=== PATIENT | male | born 1960 | race Caucasian/White ===

== ENCOUNTER 2017-03-07 12:48 | Observation (INO) | payer OTHER, MEDICAID ==
[~2017-03-07] VITALS: Ht 165.1 cm; Wt 90.0 kg
[2017-03-07 13:07] VITALS: BP_SYST 115; BP_SYST 94; BP_SYST 95; BP_DIAS 56; BP_DIAS 58; BP_DIAS 61; PULSE 95; PULSE 96; RESP 18; O2SAT 98
[2017-03-07 13:14] LABS: BLOOD GAS VENOUS HCO3 25 mmol/L (22-26); BLOOD GAS VENOUS O2 CONTENT 19.1 Vol % (9.0-17.0); BLOOD GAS VENOUS O2 HGB SAT 89 % (70-76); BLOOD GAS VENOUS PCO2 49 mmHg (44-48); BLOOD GAS VENOUS PO2 64 mmHg (35-40); BLOOD GAS VENOUS pH 7.33 (7.360-7.400); CRITICAL VALUE NO; DRAW SITE VENOUS; TEMP CORR TO 98.6
[2017-03-07] MEDS ORDERED: NALOXONE HCL 0.4 MG/ML AMP IV PUSH ONE (13:15)
[2017-03-07] MEDS ORDERED: SODIUM CHLOR 0.9% 1000 ML INJ 1,000 ML IV ONE ×2 (13:15→15:00)
[2017-03-07 13:30] LABS: AUTOMATED NEUTROPHIL # 10.1 TH/MM3 (1.8-7.7); BASOPHIL # 0.2 TH/MM3 (0-0.2); BASOPHIL % 1.2 % (0.0-2.0); EOSINOPHIL # 0.3 TH/MM3 (0-0.4); EOSINOPHIL % 2.4 % (0.0-4.0); HEMATOCRIT 45.5 % (39.0-51.0); HEMO FLAGS DIFF FINAL; LYMPH % 17.2 % (9.0-44.0); LYMPHOCYTE # 2.4 TH/MM3 (1.0-4.8); MEAN CELL VOLUME 84.8 FL (80.0-100.0); MEAN CORPUSCULAR HEMOGLOBIN 28.3 PG (27.0-34.0); MEAN CORPUSCULAR HGB CONC 33.4 % (32.0-36.0); MONO % 6.5 % (0.0-8.0); NEUT % 72.7 % (16.0-70.0); PLATELET COUNT 212 TH/MM3 (150-450); RED BLOOD COUNT 5.37 MIL/MM3 (4.50-5.90); RED CELL DISTRIBUTION WIDTH 14.9 % (11.6-17.2); WHITE BLOOD COUNT 13.9 TH/MM3 (4.0-11.0)
[2017-03-07 13:35] LABS: APTT (PATIENT) 23.8 SEC (24.3-30.1); PROTHROMBIN TIME - PATIENT 10.5 SEC (9.8-11.6)
[2017-03-07 13:47] LABS: ALT (GPT) 50 U/L (12-78)
[2017-03-07 13:48] LABS: ANION GAP 11 MEQ/L (5-15); AST (GOT) 33 U/L (15-37); BICARBONATE 23.2 MEQ/L (21.0-32.0); BLOOD UREA NITROGEN 21 MG/DL (7-18); CHLORIDE 98 MEQ/L (98-107); GLOMERULAR FILTRATION RATE 35 ML/MIN (>89); MAGNESIUM 2.1 MG/DL (1.5-2.5); POTASSIUM 4.1 MEQ/L (3.5-5.1); SODIUM (NA) 132 MEQ/L (136-145)
--- NOTE | 2017-03-07 13:48 | PD ---
HPI Chief Complaint: Cardiac Complaint Time Seen by Provider: 13:03 Travel History International Travel<30 days: No Contact w/Intl Traveler<30days: No Traveled to known affect area: No History of Present Illness HPI 56-year-old male presents with left-sided jaw pain and feeling like he's gonna pass out. Patient is very drowsy on initial examination and history is difficult to obtain. He was found in a [employer] parking lot and brought here. He was shopping there with his mother who is demented. He denies other complaints but history is limited [facility] Past Medical History Hypertension: Yes Myocardial Infarction: Yes Pneumonia: Yes Past Surgical History Thoracic Surgery: Yes (Thoracotomy in 1981) Social History Alcohol Use: Yes (on occasion) Tobacco Use: Yes (0.5 ppd) Substance Use: No Allergies-Medications (Allergen,Severity, Reaction): Coded Allergies: No Known Allergies (Unverified , 03/07/17) Review of Systems ROS Limitations: Poor Historian Except as stated in HPI: all other systems reviewed are Neg Physical Exam Exam Limitations: Poor Historian Narrative GENERAL: Well-nourished, well-developed patient. SKIN: Warm and dry. HEAD: Normocephalic and atraumatic. EYES: No injection or drainage. Pupils pinpoint ENT: No nasal drainage noted. NECK: Supple, trachea midline. CARDIOVASCULAR: Regular rate and rhythm RESPIRATORY: Breath sounds equal bilaterally at apices. No accessory muscle use. GASTROINTESTINAL: Abdomen soft, non-tender, nondistended. EXTREMITIES: No edema. NEUROLOGICAL: Drowsy but awakens to voice. Moves all extremities. Slurred speech. Data Data Last Documented VS Vital Signs Date Time Temp Pulse Resp B/P Pulse Ox O2 Delivery O2 Flow Rate FiO2 03/07/17 13:14 89 20 100 Nasal Cannula 3 03/07/17 13:07 115/61 Orders Electrocardiogram (03/07/17 13:03) B-Type Natriuretic Peptide (03/07/17 13:03) Ckmb (Isoenzyme) Profile (03/07/17 13:03) Complete Blood Count With Diff (03/07/17 13:03) Comprehensive Metabolic Panel (03/07/17 13:03) Magnesium (Mg) (03/07/17 13:03) Prothrombin Time / Inr (Pt) (03/07/17 13:03) Act Partial Throm Time (Ptt) (03/07/17 13:03) Troponin I (03/07/17 13:03) Chest, Single Ap (03/07/17 13:03) Ecg Monitoring (03/07/17 13:03) Bilateral Bp Monitoring (03/07/17 13:03) Iv Access Insert/Monitor (03/07/17 13:03) Oximetry (03/07/17 13:03) Ct Brain W/O Iv Contrast(Rout) (03/07/17 ) Ammonia (03/07/17 13:03) Drug Screen, Random Urine (03/07/17 13:03) Alcohol (Ethanol) (03/07/17 13:03) Lactic Acid Sepsis Protocol (03/07/17 13:05) Phosphorus (Po4) (03/07/17 13:05) Blood Culture (03/07/17 13:05) Sodium Chlor 0.9% 1000 Ml Inj (Ns 1000 M (03/07/17 13:15) Blood Gas Venous (Vbg) (03/07/17 13:05) Naloxone Inj (Narcan Inj) (03/07/17 13:15) Echo 2d Comp With Doppler (03/07/17 ) Sodium Chlor 0.9% 1000 Ml Inj (Ns 1000 M (03/07/17 15:00) Troponin I (03/07/17 19:00) Troponin I (03/08/17 01:00) Sodium Chlor 0.9% 1000 Ml Inj (Ns 1000 M (03/07/17 16:00) Basic Metabolic Panel (Bmp) (03/08/17 06:00) Complete Blood Count With Diff (03/08/17 06:00) Diet Heart Healthy (03/07/17 Dinner) Vital Signs (Adult) [id number] (03/07/17 15:16) Admit Order (Ed Use Only) (03/07/17 15:19) Labs Laboratory Tests Test 03/07/17 03/07/17 03/07/17 13:05 13:08 14:58 White Blood Count 13.9 TH/MM3 Red Blood Count 5.37 MIL/MM3 Hemoglobin 15.2 GM/DL Hematocrit 45.5 % Mean Corpuscular Volume 84.8 FL Mean Corpuscular Hemoglobin 28.3 PG Mean Corpuscular Hemoglobin 33.4 % Concent Red Cell Distribution Width 14.9 % Platelet Count 212 TH/MM3 Mean Platelet Volume 8.7 FL Neutrophils (%) (Auto) 72.7 % Lymphocytes (%) (Auto) 17.2 % Monocytes (%) (Auto) 6.5 % Eosinophils (%) (Auto) 2.4 % Basophils (%) (Auto) 1.2 % Neutrophils # (Auto) 10.1 TH/MM3 Lymphocytes # (Auto) 2.4 TH/MM3 Monocytes # (Auto) 0.9 TH/MM3 Eosinophils # (Auto) 0.3 TH/MM3 Basophils # (Auto) 0.2 TH/MM3 CBC Comment DIFF FINAL Differential Comment Prothrombin Time 10.5 SEC Prothromb Time International 1.0 RATIO Ratio Activated Partial 23.8 SEC Thromboplast Time Sodium Level 132 MEQ/L Potassium Level 4.1 MEQ/L Chloride Level 98 MEQ/L Carbon Dioxide Level 23.2 MEQ/L Anion Gap 11 MEQ/L Blood Urea Nitrogen 21 MG/DL Creatinine 2.00 MG/DL Estimat Glomerular Filtration 35 ML/MIN Rate Random Glucose 112 MG/DL Lactic Acid Level 1.0 mmol/L Calcium Level 9.3 MG/DL Phosphorus Level 5.3 MG/DL Magnesium Level 2.1 MG/DL Total Bilirubin 0.7 MG/DL Aspartate Amino Transf 33 U/L (AST/SGOT) Alanine Aminotransferase 50 U/L (ALT/SGPT) Alkaline Phosphatase 74 U/L Ammonia 39 MCMOL/L Total Creatine Kinase 67 U/L Troponin I LESS THAN 0.02 NG/ML B-Type Natriuretic Peptide 10 PG/ML Total Protein 8.0 GM/DL Albumin 4.1 GM/DL Ethyl Alcohol Level LESS THAN 3 MG/DL Blood Gas Puncture Site VENOUS Blood Gas Patient Temperature 98.6 Venous Blood pH 7.33 Venous Blood Partial Pressure 49 mmHg CO2 Venous Blood Partial Pressure 64 mmHg O2 Venous Blood HCO3 25 mmol/L Venous Blood Oxygen Saturation 89 % Venous Blood Oxygen Content 19.1 Vol % Venous Blood Base Excess 0.0 mmol/L Urine Color YELLOW Urine Turbidity HAZY Urine pH 6.0 Urine Specific [place] 1.014 Urine Protein 100 mg/dL Urine Glucose (UA) NEG mg/dL Urine Ketones NEG mg/dL Urine Occult Blood NEG Urine Nitrite NEG Urine Bilirubin NEG Urine Urobilinogen LESS THAN 2.0 MG/DL Urine Leukocyte Esterase NEG Urine WBC 16 /hpf Urine Hyaline Casts 5 /lpf Urine Granular Casts 13 /lpf Urine Mucus FEW /lpf Microscopic Urinalysis Comment CULTURE INDICATED Urine Opiates Screen NEG Urine Barbiturates Screen NEG Urine Amphetamines Screen NEG Urine Benzodiazepines Screen POS Urine Cocaine Screen NEG Urine Cannabinoids Screen NEG MDM Medical Decision Making Medical Screen Exam Complete: Yes Emergency Medical Condition: Yes Medical Record Reviewed: Yes (no records here) Interpretation(s) EKG is sinus rhythm at 90 with bundle branch block and multifocal PVCs without STEMI criteria confirmed by material specialist ABG shows normal pH and hemoglobin CBC & BMP Diagram 03/07/17 13:05 Last 24 hours Impressions Chest X-Ray 03/07/17 1303 Signed Impressions: Service Date/Time: Tuesday, March 07, 2017 13:17 - CONCLUSION: Underated, elevation left hemidiaphragm otherwise negative. Hilton Castro MD FACR Head CT 03/07/17 0000 Signed Impressions: Service Date/Time: Tuesday, March 07, 2017 14:06 - CONCLUSION: 1. No acute intracranial abnormality. Harsha Keller MD Differential Diagnosis AR, sepsis, congestion, intercranial.... Narrative Course Will check blood work, imaging and dose with Narcan and reevaluate After Narcan patient's pupils are now 3 mm and he is able to talk and provide more history and states he feels better. will admit to the hospital for further care, patient updated but states he cant stay now and has to take care of his mother, nurse at bedside, AMA: The risks of leaving against medical advice without further evaluation treatment were discussed with the patient. These risks include cardiac dysfunction, cardiac dysrhythmia, possible heart attack, possible stroke or . The patient indicated understanding of these risks and appeared to have the capacity to make this decision. Physician Communication Physician Communication Dr. Keenan agrees no STEMI, states can check stat echo dr keenan called back and states chronic inferior wall changes on echo, will follow dr pastor agrees to admit dr keenan and vashti advised left ama Diagnosis Primary Impression: Acute renal failure Qualified Code: N17.9 - Acute renal failure, unspecified acute renal failure type Additional Impressions: Jaw pain Frequent PVCs Altered mental status Qualified Code: R41.82 - Altered mental status, unspecified altered mental status type Additional Instructions: return for completion of testing when you can Disposition: 07 AGAINST MEDICAL ADVICE Condition: Stable Olive Quinonez MD Mar 07, 2017 13:48
[2017-03-07 13:51] LABS: ALKALINE PHOSPHATASE 74 U/L (45-117); TOTAL BILIRUBIN ADULT 0.7 MG/DL (0.2-1.0)
[2017-03-07 13:53] LABS: CREATINE KINASE 67 U/L (39-308)
--- NOTE | 2017-03-07 13:53 | RADRPT ---
EXAM DATE/TIME: 03/07/2017 13:17 [facility] COMPARISON: No previous studies available for comparison. INDICATIONS : Chest pain, confusion MEDICAL HISTORY : None. SURGICAL HISTORY : None. ENCOUNTER: Initial ACUITY: 1 day PAIN SCORE: Non-responsive. LOCATION: Bilateral chest FINDINGS: There is moderate elevation of the left hemidiaphragm. The heart is minimally enlarged. The pulmona ry vascularity is normal. There is no pneumothorax. The portion of the bony skeleton visualized is u nremarkable. CONCLUSION: Underated, elevation left hemidiaphragm otherwise negative. Hilton Castro MD FACR on March 07, 2017 at 13:50 Board Certified Radiologist. This report was verified electronically.
--- NOTE | 2017-03-07 14:22 | EKG ---
Date Performed: 03/07/2017 Time Performed: 13:04:21 PTAGE: 56 years EKG: Sinus rhythm WITH FREQUENT VENTRICULAR PREMATURE COMPLEXES INDETERMINATE AXIS RIGHT BUNDLE BRANCH BLOCK LEFT ANTE RIOR FASCICULAR BLOCK ANTERIOR MYOCARDIAL INFARCTION INFERIOR MYOCARDIAL INFARCTION ABNORMAL ECG NO PREVIOUS TRACING DOCTOR: Stan Norton Interpretating Date/Time 03/07/2017 14:20:35
--- NOTE | 2017-03-07 14:25 | ECHRPT ---
Indication: CONCLUSIONS Normal left ventricular size. The left ventricular systolic function is moderately reduced with an estimated ejection fraction 40% Inferior wall is scarred and akinetic Trace mitral valve regurgitation. There is trace tricuspid valve regurgitation. The pulmonary valve is not well visualized. BP: / HR: Rhythm: MEASUREMENTS (Male / Female) Normal Values Technical Quality:Fair 2D ECHO LV Diastolic Diameter PLAX 4.8 cm 4.2 - 5.9 / 3.9 - 5.3 cm LV Systolic Diameter PLAX 4.0 cm IVS Diastolic Thickness 1.1 cm 0.6 - 1.0 / 0.6 - 0.9 cm LVPW Diastolic Thickness 1.0 cm 0.6 - 1.0 / 0.6 - 0.9 cm LV Relative Wall Thickness 0.4 RV Internal Dim ED PLAX 2.4 cm M-MODE Aortic Root Diameter MM 3.4 cm LA Systolic Diameter MM 4.7 cm LA Ao Ratio MM 1.4 AV Cusp Separation MM 2.4 cm DOPPLER Mitral E Point Velocity 68.1 cm/s Mitral A Point Velocity 76.0 cm/s Mitral E to A Ratio 0.9 LV E' Lateral Velocity 7.0 cm/s Mitral E to LV E' Lateral Ratio 9.7 LV E' Septal Velocity 7.5 cm/s Mitral E to LV E' Septal Ratio 9.1 FINDINGS LEFT VENTRICLE Normal left ventricular size. The left ventricular systolic function is moderately reduced with an estimated ejection fraction 40% Inferior wall is scarred and akinetic RIGHT VENTRICLE Normal right ventricular size and systolic function. LEFT ATRIUM The left atrial size is normal. RIGHT ATRIUM The right atrial size is normal. ATRIAL SEPTUM Normal atrial septal thickness without atrial level shunting by limited color doppler interrogation. AORTA The aortic root and proximal ascending aorta are normal in size on limited imaging. MITRAL VALVE Structurally normal mitral valve. Trace mitral valve regurgitation. AORTIC VALVE Trileaflet aortic valve. No aortic valve stenosis or regurgitation. TRICUSPID VALVE Structurally normal tricuspid valve. There is trace tricuspid valve regurgitation. PULMONARY VALVE The pulmonary valve is not well visualized. VESSELS The inferior vena cava is normal in size. PERICARDIUM No pericardial effusion. Robin Keenan MD (Electronically Signed) Final Date:07 March 2017 14:24
--- NOTE | 2017-03-07 14:29 | RADRPT ---
EXAM DATE/TIME: 03/07/2017 14:06 [facility] COMPARISON: No previous studies available for comparison. INDICATIONS : Confusion, dizziness along with jaw pain. RADIATION DOSE: 37.32 CTDIvol (mGy) MEDICAL HISTORY : None SURGICAL HISTORY : None. ENCOUNTER: Initial ACUITY: 1 day PAIN SCALE: 3/10 LOCATION: cranial TECHNIQUE: Multiple contiguous axial images were obtained of the head. Using automated exposure control and adj ustment of the mA and/or kV according to patient size, radiation dose was kept as low as reasonably a chievable to obtain optimal diagnostic quality images. DICOM format image data is available electro nically for review and comparison. FINDINGS: CEREBRUM: The ventricles are normal for age. No evidence of midline shift, mass lesion, hemorrhage or acute in farction. No extra-axial fluid collections are seen. POSTERIOR FOSSA: The cerebellum and brainstem are intact. The 4th ventricle is midline. The cerebellopontine angle i s unremarkable. EXTRACRANIAL: The visualized portion of the orbits is intact. SKULL: The calvaria is intact. No evidence of skull fracture. CONCLUSION: 1. No acute intracranial abnormality. Harsha Keller MD on March 07, 2017 at 14:19 Board Certified Radiologist. This report was verified electronically.
[2017-03-07 15:44] LABS: AMPHETAMINE, URINE NEG (NEG); BARBITURATES, URINE NEG (NEG); COCAINE, URINE NEG (NEG)
[2017-03-07] MEDS ORDERED: SODIUM CHLOR 0.9% 1000 ML INJ 1,000 ML IV SCH (16:00)
--- NOTE | 2017-03-07 16:18 | HHI.PR ---
Addendum To [facility] Progress Not Reason for addendum: Additonal documentation (was notified by the ER physician that the patient wanted to sign out against medical advice.) Angel Dougherty MD Mar 07, 2017 16:18
[2017-03-07 16:27] LABS: BLOOD, URINE NEG (NEG); COMMENT (UR) CULTURE INDICATED; CULTURE IF INDICATED CULTURE INDICATED; GLUCOSE,URINE NEG (NEG); GRANULAR CAST, URINE 13 /lpf; HYALINE CAST, URINE 5 /lpf (RARE); KETONE, URINE NEG (NEG); MUCUS URINE FEW /lpf (OCC); NITRITE,URINE NEG (NEG); URINE COLOR YELLOW (YELLW/STRAW)
== END 2017-03-07 16:35 | disposition left against medical advice (07) ==
LOC: NEPE 12:48 → NEDA 15:20
PROVIDERS: ADMIT Internal Medicine; ATTEND Internal Medicine
DX: N17.9 Acute kidney failure, unspecified (principal); R68.84 Jaw pain; I49.3 Ventricular premature depolarization; R41.82 Altered mental status, unspecified; R40.0 Somnolence; R47.81 Slurred speech; I45.10 Unspecified right bundle-branch block; R91.8 Other nonspecific abnormal finding of lung field; R07.9 Chest pain, unspecified; R41.0 Disorientation, unspecified; I44.4 Left anterior fascicular block; R94.31 Abnormal electrocardiogram [ECG] [EKG]; R42 Dizziness and giddiness; I10 Essential (primary) hypertension; I25.2 Old myocardial infarction; F17.200 Nicotine dependence, unspecified, uncomplicated
CPT/HCPCS: 70450; 71010; 80053; 80307; 81001; 82140; 82550; 82805; 83605; 83735; 83880; 84100; 84484; 85025; 85610; 85730; 87040; 87086; 93005; 93306; 96374; 99285; G0378; J2310; J7030

== ENCOUNTER 2017-05-17 13:29 | Observation (INO) | payer OTHER, MEDICAID ==
[2017-05-17] VITALS (12 sets, daily range): BP systolic 78–107; BP diastolic 46–58; PULSE 50–90; RESP 18–20; TEMP 98.6; O2SAT 97–100
[~2017-05-17] VITALS: Ht 170.2 cm; Wt 94.0 kg
[2017-05-17] MEDS ORDERED: SPIR25 PO ×2 (13:41→13:46)
[2017-05-17] MEDS ORDERED: TICA1TAB PO (13:41)
[2017-05-17] MEDS ORDERED: LISI-515 PO (13:41)
[2017-05-17] MEDS ORDERED: ASPI81CH37 CHEW (13:41)
[2017-05-17] MEDS ORDERED: ALPR.25 PO (13:41)
[2017-05-17] MEDS ORDERED: XANA1TAB2 PO (13:46)
[2017-05-17] MEDS ORDERED: BRIL90TA PO (13:46)
[2017-05-17] MEDS ORDERED: LISI10TA3 PO (13:46)
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
[2017-05-17] MEDS ORDERED: SODIUM CHLOR 0.9% 1000 ML INJ 1,000 ML IV ONE ×3 (14:00→22:45)
[2017-05-17 14:01] LABS: AUTOMATED NEUTROPHIL # 10.1 TH/MM3 (1.8-7.7); BASOPHIL # 0.2 TH/MM3 (0-0.2); BASOPHIL % 1.5 % (0.0-2.0); EOSINOPHIL # 0.1 TH/MM3 (0-0.4); EOSINOPHIL % 0.7 % (0.0-4.0); HEMATOCRIT 35.9 % (39.0-51.0); HEMO FLAGS DIFF FINAL; LYMPH % 8.9 % (9.0-44.0); LYMPHOCYTE # 1.1 TH/MM3 (1.0-4.8); MEAN CORPUSCULAR HEMOGLOBIN 28.6 PG (27.0-34.0); MEAN CORPUSCULAR HGB CONC 33.7 % (32.0-36.0); MONO % 9.3 % (0.0-8.0); NEUT % 79.6 % (16.0-70.0); PLATELET COUNT 121 TH/MM3 (150-450); RED BLOOD COUNT 4.22 MIL/MM3 (4.50-5.90); RED CELL DISTRIBUTION WIDTH 12.9 % (11.6-17.2); WHITE BLOOD COUNT 12.7 TH/MM3 (4.0-11.0)
[2017-05-17 14:12] LABS: POTASSIUM 4.2 MEQ/L (3.5-5.1)
[2017-05-17 14:15] LABS: BICARBONATE 23.7 MEQ/L (21.0-32.0)
[2017-05-17 14:17] LABS: APTT (PATIENT) 28.2 SEC (24.3-30.1); PROTHROMBIN TIME - PATIENT 10.9 SEC (9.8-11.6)
--- NOTE | 2017-05-17 14:53 | RADRPT ---
EXAM DATE/TIME: 05/17/2017 14:12 [facility] COMPARISON: No previous studies available for comparison. INDICATIONS : Sudden onset of severe right side low back pain yesterday MEDICAL HISTORY : None. SURGICAL HISTORY : None. ENCOUNTER: Initial ACUITY: 2 days PAIN SCORE: 10/10 LOCATION: Right low back FINDINGS: 3 views of the lumbar spine. Grade 1 anterolisthesis L4 on L5. Moderate-sized endplate osteophytes at L4-5. Moderate severity bony facet hypertrophy at L5-S1. No evidence of fracture. CONCLUSION: Moderate severity bony degenerative findings of the lower lumbar spine. Rom Wharton MD on May 17, 2017 at 14:50 Board Certified Radiologist. This report was verified electronically.
[2017-05-17 16:14] LABS: BLOOD, URINE NEG (NEG); GLUCOSE,URINE NEG (NEG); KETONE, URINE NEG (NEG); NITRITE,URINE NEG (NEG); PH, URINE 5.5 (5.0-8.5)
--- NOTE | 2017-05-17 16:14 | RADRPT ---
EXAM DATE/TIME: 05/17/2017 15:41 [facility] COMPARISON: No previous studies available for comparison. INDICATIONS : Low back pain. MEDICAL HISTORY : Hypertension. SURGICAL HISTORY : Coronary artery stent. Thoracotomy ENCOUNTER: Initial ACUITY: 1 day PAIN SCORE: 5/10 LOCATION: Paraspinal TECHNIQUE: Multiplanar multisequence MRI of the lumbar spine was performed without contrast. FINDINGS: The most caudal appearing lumbar vertebra is numbered as L5. VERTEBRAE: Grade 1 anterolisthesis L4 on L5. Bilateral pars interarticularis defects of L4 noted. CONUS: Normal level and configuration. T12-L1: The thecal sac has a normal diameter. No evidence of disc bulge or protrusion. The neural foramina are patent bilaterally. L1-L2: The thecal sac has a normal diameter. No evidence of disc bulge or protrusion. The neural foramina are patent bilaterally. L2-L3: The thecal sac has a normal diameter. No evidence of disc bulge or protrusion. The neural foramina are patent bilaterally. L3-L4: The thecal sac has a normal diameter. No evidence of disc bulge or protrusion. The neural foramina are patent bilaterally. L4-L5: Bilateral pars interarticularis defects of L4. Grade 1 anterolisthesis. Mild bilateral neural foramin al narrowing. Central canal diameter within normal limits. L5-S1: The thecal sac has a normal diameter. No evidence of disc bulge or protrusion. The neural foramina are patent bilaterally. CONCLUSION: Bilateral L4 pars interarticularis defects with grade 1 anterolisthesis of L4 on L5. This finding is age-indeterminate. Mild bilateral neural foraminal narrowing at L4-5. Central canal diameter within n ormal limits all levels. Rom Wharton MD on May 17, 2017 at 16:10 Board Certified Radiologist. This report was verified electronically.
[2017-05-17 16:35] LABS: COMMENT (UR) CULT NOT INDICATED; CULTURE IF INDICATED CULT NOT INDICATED; RBC, URINE 0-3 /hpf (0-3); SQUAMOUS EPITHELIAL CELL URINE 0-5 /hpf (0-5); URINE COLOR YELLOW (YELLW/STRAW); WBC, URINE 0-2 /hpf (0-5)
[2017-05-17] MEDS ORDERED: HYDROmorphone HCL PF 1 MG/ML VIAL IVS ONE (16:45)
[2017-05-17] MEDS ORDERED: ONDANSETRON HCL 4 MG/2 ML VIAL IVP ONE (16:45)
[2017-05-17] MEDS ORDERED: NAPROXEN 500 MG TAB PO ONE (17:00)
[2017-05-17] MEDS ORDERED: ONDANSETRON HCL 4 MG/2 ML VIAL IVP PRN (17:00)
[2017-05-17] MEDS ORDERED: oxyCODONE/ACETAMINOPHEN 5 MG/325 MG TAB PO PRN (17:00)
[2017-05-17] MEDS ORDERED: LACTULOSE SYRUP 20 GM/30 ML CUP PO PRN (17:00)
[2017-05-17] MEDS ORDERED: SODIUM CHLORIDE 0.9% FLUSH 10 ML FLUSH IV FLUSH PRN (17:00)
[2017-05-17] MEDS ORDERED: CYCLOBENZAPRINE HCL 10 MG TAB PO ONE (17:00)
[2017-05-17] MEDS ORDERED: SENNOSIDES 8.6 MG TAB PO PRN (17:00)
[2017-05-17] MEDS ORDERED: NALOXONE HCL 0.4 MG/ML AMP IV PRN (17:00)
--- NOTE | 2017-05-17 17:07 | HHI.HP ---
[facility] Hilton Guerrero DO Admission Diagnosis intract back pain Diagnoses: Travel History International Travel<30 Days: No Contact w/Intl Traveler <30 Da: No Traveled to Known Affected Are: No History of Present Illness Mr. Mcgowan is a 57-year-old male. He reports that he saw a movie last night started having some back pain. Once he returned home he sat in a chair and after sitting and that chair he had difficulty standing. He was unable to stand to return to bedside he spent the night in the chair and in the morning he could not even attempt to get out of the chair due to pain. This is why he is in the ER. Thus far he has not been able to get out of her, and position due to pain in his back. He cannot recall any previous back strain like this. He also does not recall specific triggering event. Most of his medical history is related to coronary artery disease with history of 6 heart attacks and CHF. CHF is not exacerbated. He reports no fevers, no cough, no diarrhea, no vomiting. The pain is specifically musculoskeletal related induced by movements and attempts at movement. MRI shows no acute pathology. Review of Systems Constitutional: DENIES: Fatigue, Fever, Chills, Dizziness, Change in appetite Endocrine: DENIES: Heat/cold intolerance Eyes: DENIES: Blurred vision, Diplopia, Eye pain Ears, nose, mouth, throat: DENIES: Tinnitus, Hearing loss, Vertigo Respiratory: DENIES: Apneas, Cough, Wheezing, Sputum production Cardiovascular: DENIES: Chest pain, Palpitations, Syncope Gastrointestinal: DENIES: Abdominal pain, Black stools, Bloody stools Musculoskeletal: COMPLAINS OF: Muscle aches, Stiffness, Back pain, DENIES: Joint pain Integumentary: DENIES: Abnormal pigmentation Hematologic/lymphatic: DENIES: Bruising Immunologic/allergic: DENIES: Eczema Neurologic: DENIES: Abnormal gait, Headache Psychiatric: DENIES: Anxiety, Confusion, Depression Past Family Social History Past Medical History Coronary artery disease Myocardial infarction 6 CHF Trauma from football Pneumonia/empyema history Degenerative disc disease of spine Past Surgical History Tonsillectomy Right hip surgery Multiple right shoulder surgeries Coronary stents 6 Reported Medications Reported Meds & Active Scripts Active Reported Xanax (Alprazolam) 1 Mg Tab 1 Mg PO Q8H PRN Aldactone (Spironolactone) 25 Mg Tab 75 Mg PO DAILY Lisinopril 10 Mg Tab 10 Mg PO DAILY Brilinta (Ticagrelor) 90 Mg Tab 90 Mg PO BID Aspirin Low Dose (Aspirin) 81 Mg Chew 81 Mg CHEW DAILY Allergies: Coded Allergies: No Known Allergies (Unverified , 05/17/17) Active Ordered Medications Administered Medications Medications (Trade) Dose Ordered Sig/Henrry Route PRN Reason Start Time Stop Time Status Last Admin Dose Admin Sodium Chloride 1,000 ml @ 2,000 mls/hr Q30M ONCE IV 05/17/17 16:45 05/17/17 17:14 05/17/17 16:55 Family History Alzheimer's dementia in his mother Myocardial infarction in his father Social History Distant history of smoking at the age of 31. He quit at age 31 also. No illicit drug abuse No alcohol abuse Physical Exam Vital Signs Vital Signs Date Time Temp Pulse Resp B/P (MAP) Pulse Ox O2 Delivery O2 Flow Rate FiO2 05/17/17 16:56 74 18 107/55 (72) 99 Room Air 05/17/17 16:01 88 18 96/50 (65) 97 Room Air 05/17/17 14:27 90 18 90/46 (61) 98 Room Air 05/17/17 13:31 98.6 86 18 103/57 (72) 97 Physical Exam GENERAL: This is a well-nourished, well-developed patient, in no apparent distress. SKIN: No rashes, ecchymoses or lesions. Cool and dry. HEAD: Atraumatic. Normocephalic. No temporal or scalp tenderness. EYES: Pupils equal round and reactive. Extraocular motions intact. No scleral icterus. No injection or drainage. ENT: Nose without bleeding, purulent drainage or septal hematoma. Throat without erythema, tonsillar hypertrophy or exudate. Uvula midline. Airway patent. NECK: Trachea midline. No JVD or lymphadenopathy. Supple, nontender, no meningeal signs. CARDIOVASCULAR: Regular rate and rhythm without murmurs, gallops, or rubs. RESPIRATORY: Clear to auscultation. Breath sounds equal bilaterally. No wheezes , rales, or rhonchi. GASTROINTESTINAL: Abdomen soft, non-tender, nondistended. No hepato-splenomegaly , or palpable masses. No guarding. MUSCULOSKELETAL: Extremities without clubbing, cyanosis, or edema. No joint tenderness, effusion, or edema noted. No calf tenderness. Negative Homans sign bilaterally. NEUROLOGICAL: Awake and alert. Cranial nerves II through XII intact. Motor and sensory grossly within normal limits. Five out of 5 muscle strength in all muscle groups. Normal speech. Laboratory Laboratory Tests Test 05/17/17 13:45 05/17/17 16:00 White Blood Count 12.7 Red Blood Count 4.22 Hemoglobin 12.1 Hematocrit 35.9 Mean Corpuscular Volume 85.0 Mean Corpuscular Hemoglobin 28.6 Mean Corpuscular Hemoglobin Concent 33.7 Red Cell Distribution Width 12.9 Platelet Count 121 Mean Platelet Volume 8.4 Neutrophils (%) (Auto) 79.6 Lymphocytes (%) (Auto) 8.9 Monocytes (%) (Auto) 9.3 Eosinophils (%) (Auto) 0.7 Basophils (%) (Auto) 1.5 Neutrophils # (Auto) 10.1 Lymphocytes # (Auto) 1.1 Monocytes # (Auto) 1.2 Eosinophils # (Auto) 0.1 Basophils # (Auto) 0.2 CBC Comment DIFF FINAL Differential Comment Prothrombin Time 10.9 Prothromb Time International Ratio 1.0 Activated Partial Thromboplast Time 28.2 Blood Urea Nitrogen 24 Creatinine 1.80 Random Glucose 128 Calcium Level 8.3 Sodium Level 131 Potassium Level 4.2 Chloride Level 99 Carbon Dioxide Level 23.7 Anion Gap 8 Estimat Glomerular Filtration Rate 39 Urine Color YELLOW Urine Turbidity CLEAR Urine pH 5.5 Urine Specific [place] 1.012 Urine Protein NEG Urine Glucose (UA) NEG Urine Ketones NEG Urine Occult Blood NEG Urine Nitrite NEG Urine Bilirubin NEG Urine Leukocyte Esterase NEG Urine RBC 0-3 Urine WBC 0-2 Urine Squamous Epithelial Cells 0-5 Microscopic Urinalysis Comment CULT NOT INDICATED Urine Opiates Screen POS Urine Barbiturates Screen NEG Urine Amphetamines Screen NEG Urine Benzodiazepines Screen POS Urine Cocaine Screen NEG Urine Cannabinoids Screen NEG Result Diagram: 05/17/17 1345 05/17/17 1345 Imaging Last Impressions Lumbar Spine X-Ray 05/17/17 0000 Signed Impressions: Service Date/Time: Wednesday, May 17, 2017 14:12 - CONCLUSION: Moderate severity bony degenerative findings of the lower lumbar spine. Rom Wharton MD Lumbar Spine MRI 05/17/17 0000 Signed Impressions: Service Date/Time: Wednesday, May 17, 2017 15:41 - CONCLUSION: Bilateral L4 pars interarticularis defects with grade 1 anterolisthesis of L4 on L5. This finding is age-indeterminate. Mild bilateral neural foraminal narrowing at L4- 5. Central canal diameter within normal limits all levels. Rom Wharton MD Caprini VTE Risk Assessment Caprini VTE Risk Assessment: No/Low Risk (score <= 1) Caprini Risk Assessment Model Point Value = 1 Point Value = 2 Point Value = 3 Point Value = 5 Age 41-60 Minor surgery BMI > 25 kg/m2 Swollen legs Varicose veins or History of unexplained or recurrent spontaneous Oral contraceptives or hormone replacement Sepsis (< 1 month) Serious lung disease, including pneumonia (< 1 month) Abnormal pulmonary function Acute myocardial infarction Congestive heart failure (< 1 month) History of inflammatory bowel disease Medical patient at bed rest Age 61-74 Arthroscopic surgery Major open surgery (> 45 min) Laparoscopic surgery (> 45 min) Malignancy Confined to bed (> 72 hours) Immobilizing plaster cast Central venous access Age >= 75 History of VTE Family history of VTE Factor V Leiden Prothrombin [id number] Lupus anticoagulant Anticardiolipin antibodies Elevated serum homocysteine Heparin-induced thrombocytopenia Other congenital or acquired thrombophilia Stroke (< 1 month) Elective arthroplasty Hip, pelvis, or leg fracture Acute spinal cord injury (< 1 month) Prophylaxis Regimen Total Risk Factor Score Risk Level Prophylaxis Regimen 0-1 Low Early ambulation 2 Moderate Order ONE of the following: *Sequential Compression Device (SCD) *Heparin 5000 units SQ BID 3-4 Higher Order ONE of the following medications: *Heparin 5000 units SQ TID *Enoxaparin/Lovenox 40 mg SQ daily (WT < 150 kg, CrCl > 30 mL/min) *Enoxaparin/Lovenox 30 mg SQ daily (WT < 150 kg, CrCl > 10-29 mL/min) *Enoxaparin/Lovenox 30 mg SQ BID (WT < 150 kg, CrCl > 30 mL/min) AND/OR *Sequential Compression Device (SCD) 5 or more Highest Order ONE of the following medications: *Heparin 5000 units SQ TID (Preferred with Epidurals) *Enoxaparin/Lovenox 40 mg SQ daily (WT < 150 kg, CrCl > 30 mL/min) *Enoxaparin/Lovenox 30 mg SQ daily (WT < 150 kg, CrCl > 10-29 mL/min) *Enoxaparin/Lovenox 30 mg SQ BID (WT < 150 kg, CrCl > 30 mL/min) AND *Sequential Compression Device (SCD) Assessment and Plan Problem List: (1) Back strain ICD Code: S39.012A - Strain of muscle, fascia and tendon of lower back, initial encounter (2) Intractable low back pain ICD Code: M54.5 - Low back pain Status: Acute Assessment and Plan Assessment and plan 57-year-old male admitted secondary to acute back strain, inability to ambulate , and irretractable pain. Acute back strain Inability to ambulate Irretractable pain Percocet for pain control Schedule a laxatives Scheduled NSAIDs Follow for improvement PT in a.m. if tolerated Coronary artery disease Myocardial infarction 6 CHF No chest pain reported Follow clinically No change to baseline treatments Continue to follow with cardiology as an outpatient DVT prophylaxis SCDs Ender Inman MD May 17, 2017 17:07
[2017-05-17] MEDS ORDERED: ENOXAPARIN SODIUM 40 MG/0.4 ML SYRINGE SQ SCH (18:00)
[2017-05-17] MEDS: NAPROXEN 500 MG TAB PO SCH (21:55)
[2017-05-17] MEDS: DOCUSATE SODIUM 50 MG/SENNA 8.6 MG TAB PO SCH (21:55)
[2017-05-17] MEDS: TICAGRELOR 90 MG TAB PO SCH (21:56)
[2017-05-17] MEDS: CYCLOBENZAPRINE HCL 10 MG TAB PO SCH (22:00)
[2017-05-17] MEDS: SODIUM CHLORIDE 0.9% FLUSH 10 ML FLUSH IV FLUSH SCH (22:47)
[2017-05-18] VITALS (9 sets, daily range): BP systolic 90–104; BP diastolic 53–68; PULSE 50–65; RESP 17–20; TEMP 96.2–98; O2SAT 98–100
[2017-05-18] MEDS ORDERED: IODIXANOL 320 MG/ML 50 ML VIAL (for Rad CT) IV ONE (01:50)
--- NOTE | 2017-05-18 02:45 | RADRPT ---
EXAM DATE/TIME: 05/18/2017 01:35 [place] COMPARISON: MRI LUMBAR SPINE W/O CONTRAST, May 17, 2017, 15:41. INDICATIONS : Low back pain. Evaluate for aortic dissection. IV CONTRAST: 50 cc Visipaque (iodixanol) IV RADIATION DOSE: 22.51 CTDIvol (mGy) MEDICAL HISTORY : Congestive hearrt failure. Myocardial infarction. Hypertension. SURGICAL HISTORY : Thoracotomy. ENCOUNTER: Initial ACUITY: 2 days PAIN SCALE: 7/10 LOCATION: Low back TECHNIQUE: Volumetric scanning was performed using a multi-row detector CT scanner. The data was post processed with a variety of visualization algorithms including full volume maximum intensity projection, multi -planar sliding thin slab reformation, curved planar reformation, and surface rendering techniques. Using automated exposure control and adjustment of the mA and/or kV according to patient size, radiat ion dose was kept as low as reasonably achievable to obtain optimal diagnostic quality images. DICOM format image data is available electronically for review and comparison. FINDINGS: LUNGS: Mild patchy atelectasis.. MEDIASTINUM: No abnormally enlarged lymph nodes by CT criteria. No axillary or hilar abnormalities are identified. Heart size within normal limits. Coronary artery calcification noted. ABDOMEN: The liver and spleen are free of focal defects. The gallbladder and pancreas demonstrate no abnormali ty. The adrenal glands are normal. 19 mm cyst seen in the right kidneys. The kidneys demonstrate no e vidence of solid renal mass or hydronephrosis. No free fluid or abdominal masses are identified. No p shun-aortic adenopathy is seen. PELVIS: No evidence of free fluid or pelvic mass. No abnormally enlarged inguinal or retroperitoneal lymph no [place] are present. The bladder is unremarkable. THORACIC AORTA: The thoracic aortic root is normal with normal branching of the great vessels. There is no evidence of aneurysm or dissection. ABDOMINAL AORTA: The aorta is normal in caliber without aneurysm or dissection. The renal arteries are patent bilater ally. The proximal celiac and superior mesenteric arteries are patent and normal in diameter. PELVIC VESSELS: The internal iliac and external iliac vessels are patent without aneurysm or stenosis. Disc space narrowing, facet osteoarthritis and grade 1 degenerative anterolisthesis seen at L4/L5. CONCLUSION: 1. No aneurysm, dissection or other acute abnormality of the aorta. 2. Coronary artery calcification. 3. Mild patchy atelectasis of both lungs. 4. Right renal cyst. 5. Lower lumbar degenerative changes at L4/L5, similar to the prior MRI. Rob Meza MD on May 18, 2017 at 2:39 Board Certified Radiologist. This report was verified electronically.
[2017-05-18 06:40] LABS: CHLORIDE 105 MEQ/L (98-107); SODIUM (NA) 136 MEQ/L (136-145)
[2017-05-18 06:41] LABS: AUTOMATED NEUTROPHIL # 5.2 TH/MM3 (1.8-7.7); BASOPHIL % 0.4 % (0.0-2.0); EOSINOPHIL # 0.2 TH/MM3 (0-0.4); EOSINOPHIL % 2.6 % (0.0-4.0); LYMPH % 20.5 % (9.0-44.0); LYMPHOCYTE # 1.6 TH/MM3 (1.0-4.8); MEAN CELL VOLUME 84.1 FL (80.0-100.0); MEAN CORPUSCULAR HEMOGLOBIN 27.6 PG (27.0-34.0); MEAN CORPUSCULAR HGB CONC 32.9 % (32.0-36.0); MONO % 11.2 % (0.0-8.0); NEUT % 65.3 % (16.0-70.0); PLATELET COUNT 89 TH/MM3 (150-450); RED BLOOD COUNT 3.69 MIL/MM3 (4.50-5.90); RED CELL DISTRIBUTION WIDTH 12.8 % (11.6-17.2); WHITE BLOOD COUNT 7.9 TH/MM3 (4.0-11.0)
[2017-05-18 06:42] LABS: HEMO FLAGS AUTO DIFF
[2017-05-18 06:43] LABS: ANION GAP 6 MEQ/L (5-15); BICARBONATE 24.7 MEQ/L (21.0-32.0)
[2017-05-18 06:44] LABS: BLOOD UREA NITROGEN 18 MG/DL (7-18)
[2017-05-18 06:46] LABS: ALT (GPT) 22 U/L (12-78)
[2017-05-18 06:47] LABS: AST (GOT) 15 U/L (15-37); GLOMERULAR FILTRATION RATE 62 ML/MIN (>89)
[2017-05-18 06:48] LABS: TOTAL BILIRUBIN ADULT 0.5 MG/DL (0.2-1.0)
[2017-05-18 06:49] LABS: ALKALINE PHOSPHATASE 47 U/L (45-117)
[2017-05-18 07:40] LABS: SCAN/DIFF AUTO DIFF CONFIRMED
[2017-05-18] MEDS ORDERED: ASPIRIN 81 MG CHEW TAB CHEW SCH (09:00)
[2017-05-18] MEDS: SODIUM CHLORIDE 0.9% FLUSH 10 ML FLUSH IV FLUSH SCH ×2 (09:00→20:52)
[2017-05-18] MEDS: DOCUSATE SODIUM 50 MG/SENNA 8.6 MG TAB PO SCH ×2 (09:24→20:51)
[2017-05-18] MEDS: oxyCODONE/ACETAMINOPHEN 10 MG/325 MG TAB PO PRN ×3 (09:24→23:16)
[2017-05-18] MEDS: TICAGRELOR 90 MG TAB PO SCH ×2 (10:26→21:00)
[2017-05-18] MEDS: NAPROXEN 500 MG TAB PO SCH ×2 (10:26→20:51)
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
[2017-05-18] MEDS: HYDROmorphone HCL PF 1 MG/ML VIAL IV PRN ×2 (12:14→20:51)
[2017-05-18] MEDS ORDERED: MAGNESIUM HYDROXIDE SUSP 30 ML CUP PO PRN (12:30)
[2017-05-18] MEDS: CYCLOBENZAPRINE HCL 10 MG TAB PO SCH ×2 (14:08→20:51)
--- NOTE | 2017-05-18 17:56 | EKG ---
Date Performed: 05/18/2017 Time Performed: 00:13:37 PTAGE: 57 years EKG: Sinus rhythm WITH OCCASIONAL VENTRICULAR PREMATURE COMPLEXES INDETERMINATE AXIS RIGHT BUNDLE BRANCH BLOCK ABNORMA L ECG Inferior infarct, age undetermined PREVIOUS TRACING : 03/07/2017 13.04 Compared to prior tracing sinus rat is slower DOCTOR: Jayme Orellana Interpretating Date/Time 05/18/2017 17:55:55
[2017-05-19] VITALS (9 sets, daily range): BP systolic 88–111; BP diastolic 50–68; PULSE 59–90; RESP 16–20; TEMP 95.8–98.6; O2SAT 96–100
[2017-05-19] MEDS: ALPRAZolam 1 MG TAB PO PRN (01:55)
[2017-05-19] MEDS: HYDROmorphone HCL PF 1 MG/ML VIAL IV PRN ×2 (01:55→14:42)
[2017-05-19] MEDS: CYCLOBENZAPRINE HCL 10 MG TAB PO SCH ×3 (05:15→21:35)
[2017-05-19 08:30] LABS: BASOPHIL % 0.2 % (0.0-2.0); EOSINOPHIL # 0.5 TH/MM3 (0-0.4); HEMATOCRIT 37.2 % (39.0-51.0); HEMO FLAGS DIFF FINAL; LYMPH % 11.4 % (9.0-44.0); LYMPHOCYTE # 1.2 TH/MM3 (1.0-4.8); MEAN CELL VOLUME 84.6 FL (80.0-100.0); MEAN CORPUSCULAR HEMOGLOBIN 28.3 PG (27.0-34.0); MEAN CORPUSCULAR HGB CONC 33.5 % (32.0-36.0); MONO % 6.5 % (0.0-8.0); NEUT % 76.9 % (16.0-70.0); PLATELET COUNT 124 TH/MM3 (150-450); RED CELL DISTRIBUTION WIDTH 12.8 % (11.6-17.2); WHITE BLOOD COUNT 10.4 TH/MM3 (4.0-11.0)
[2017-05-19 08:48] LABS: CHLORIDE 104 MEQ/L (98-107); POTASSIUM 4.1 MEQ/L (3.5-5.1); SODIUM (NA) 137 MEQ/L (136-145)
[2017-05-19 08:58] LABS: ANION GAP 8 MEQ/L (5-15); BICARBONATE 24.7 MEQ/L (21.0-32.0); BLOOD UREA NITROGEN 18 MG/DL (7-18)
[2017-05-19 09:00] LABS: ALT (GPT) 22 U/L (12-78)
[2017-05-19] MEDS: DOCUSATE SODIUM 50 MG/SENNA 8.6 MG TAB PO SCH ×2 (09:00→21:35)
[2017-05-19 09:01] LABS: AST (GOT) 18 U/L (15-37); GLOMERULAR FILTRATION RATE 69 ML/MIN (>89)
[2017-05-19 09:02] LABS: TOTAL BILIRUBIN ADULT 0.5 MG/DL (0.2-1.0)
[2017-05-19 09:03] LABS: ALKALINE PHOSPHATASE 47 U/L (45-117)
[2017-05-19] MEDS: NAPROXEN 500 MG TAB PO SCH ×2 (09:39→21:35)
[2017-05-19] MEDS: SODIUM CHLORIDE 0.9% FLUSH 10 ML FLUSH IV FLUSH SCH ×2 (09:39→21:35)
[2017-05-19] MEDS: TICAGRELOR 90 MG TAB PO SCH ×3 (09:39→21:52)
[2017-05-19] MEDS ORDERED: OXYC1TAB36 PO (11:09)
[2017-05-19] MEDS ORDERED: NAPR500 PO (11:09)
[2017-05-19] MEDS ORDERED: SENN1TAB PO (11:10)
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
[2017-05-19] MEDS: oxyCODONE/ACETAMINOPHEN 10 MG/325 MG TAB PO PRN ×2 (11:59→21:34)
[2017-05-20 01:16] VITALS: BP 98/65; PULSE 63; RESP 16; TEMP 98.3; O2SAT 99
[2017-05-20] MEDS: HYDROmorphone HCL PF 1 MG/ML VIAL IV PRN (03:46)
[2017-05-20] MEDS: ALPRAZolam 1 MG TAB PO PRN (03:54)
[2017-05-20 04:17] VITALS: BP 109/71; PULSE 73; RESP 18; TEMP 96.1; O2SAT 99
[2017-05-20] MEDS: CYCLOBENZAPRINE HCL 10 MG TAB PO SCH (05:19)
[2017-05-20 08:00] VITALS: PULSE 79
[2017-05-20] MEDS: SODIUM CHLORIDE 0.9% FLUSH 10 ML FLUSH IV FLUSH SCH (09:00)
[2017-05-20 09:24] VITALS: BP 120/72; PULSE 84; RESP 15; TEMP 96.2; O2SAT 98
[2017-05-20] MEDS: NAPROXEN 500 MG TAB PO SCH (09:38)
[2017-05-20] MEDS: oxyCODONE/ACETAMINOPHEN 10 MG/325 MG TAB PO PRN (09:38)
[2017-05-20] MEDS: DOCUSATE SODIUM 50 MG/SENNA 8.6 MG TAB PO SCH (09:38)
[2017-05-20] MEDS: TICAGRELOR 90 MG TAB PO SCH (10:27)
[2017-05-20 10:38] VITALS: RESP 18
[2017-05-20] MEDS ORDERED: PERC10TA27 PO (15:10)
== END 2017-05-20 12:47 | disposition home or self-care (01) ==
LOC: PHED 13:29 → PHEDA 16:42 → PHEDH 23:52 → PH3A 05-18 08:23
PROVIDERS: ADMIT Family Medicine; ATTEND Family Medicine
DX: S39.012A Strain of muscle, fascia and tendon of lower back, initial encounter (principal); I25.10 Atherosclerotic heart disease of native coronary artery without angina pectoris; I13.0 Hypertensive heart and chronic kidney disease with heart failure and stage 1 through stage 4 chronic kidney disease, or unspecified chronic kidney disease; N18.9 Chronic kidney disease, unspecified; I50.9 Heart failure, unspecified; I25.2 Old myocardial infarction; M43.16 Spondylolisthesis, lumbar region; J98.11 Atelectasis; R94.31 Abnormal electrocardiogram [ECG] [EKG]; Z95.5 Presence of coronary angioplasty implant and graft; Z87.891 Personal history of nicotine dependence
CPT/HCPCS: 71275; 72100; 72148; 74174; 80048; 80053; 80307; 81001; 84484; 85025; 85610; 85730; 93005; 96361; 96372; 96374; 96375; 96376; 97162; 99285; G0378; G8987; G8988; J1170; J1650; J2405; J7030; Q9967